=== PATIENT | female | born 1930 | race Caucasian/White ===

== ENCOUNTER 2019-04-27 12:03 | Emergency (ER) | payer MEDICARE, BC ==
[~2019-04-27] VITALS: Ht 162.6 cm; Wt 95.5 kg
[~2019-04-27 12:03] MED LIST: ALB0.5UD NEB; CALC-729 PO; COU5T PO; CYAN100019 PO; FERR-86 PO; HYDR-3972 PO; LOP25T PO; MULT-1179 PO; SPIIN IH
[2019-04-27] MEDS ORDERED: diltiazem 5mg/ml 5ml inj. IV ONE (12:40)
[2019-04-27 12:43] LABS: BASOPHILS # (AUTO) 0.1 X10'3 (0-0.2); BASOPHILS % (AUTO) 0.8 % (0-1); EOSINOPHILS # (AUTO) 0.2 X10'3 (0-0.9); EOSINOPHILS % (AUTO) 2.3 % (0-6); HEMATOCRIT 37.1 % (35.0-45.0); HEMOGLOBIN 12.5 g/dl (12.0-16.0); LYMPHOCYTES # (AUTO) 0.8 X10'3 (1.1-4.8); LYMPHOCYTES % (AUTO) 9.3 % (21-51); MEAN CORPUSCULAR HEMOGLOBIN 34.4 PG (27.0-31.0); MEAN CORPUSCULAR HGB CONC 33.8 g/dL (33.0-36.5); MEAN CORPUSCULAR VOLUME 101.8 FL (78-98); MEAN PLATELET VOLUME 7.5 FL (7.4-10.4); MONOCYTES # (AUTO) 0.7 X10'3 (0-0.9); MONOCYTES % (AUTO) 7.8 % (2-12); NEUTROPHILS % (AUTO) 79.8 % (42-75); PLATELET COUNT 406 X10'3 (140-440); RED BLOOD COUNT 3.65 X10'6 (4.20-5.60); RED CELL DISTRIBUTION WIDTH 13.8 % (11.5-14.5); WHITE BLOOD COUNT 8.8 X10'3 (4.5-11.0)
[2019-04-27] MEDS ORDERED: metoprolol tartrate 50mg tablet PO ONE (12:45)
[2019-04-27 12:55] LABS: ALANINE AMINOTRANSFERASE 26 U/L (12-78); ALBUMIN 2.8 G/DL (3.4-5.0); ALBUMIN/GLOBULIN RATIO 0.5 (1.1-1.5); ALKALINE PHOSPHATASE 94 IU/L (46-116); ANION GAP 7 (8-16); ASPARTATE AMINO TRANSFERASE 34 U/L (10-37); BILIRUBIN,TOTAL 0.6 MG/DL (0.1-1.0); BLOOD UREA NITROGEN 11 MG/DL (7-18); BUN/CREATININE RATIO 10.9 (6.6-38.0); CALCIUM 9.8 MG/DL (8.5-10.1); CHLORIDE 101 MMOL/L (99-107); CREATININE 1.01 MG/DL (0.40-0.90); GLUCOSE 123 MG/DL (70-104); POTASSIUM 3.8 MMOL/L (3.5-5.1); SODIUM 138 MMOL/L (135-145); TOTAL CARBON DIOXIDE 29.6 MMOL/L (24-32); TOTAL PROTEIN 7.9 G/DL (6.4-8.2); eGFR 52 ML/MIN
[2019-04-27 14:18] VITALS: BP 109/78
== END 2019-04-27 14:20 | disposition home or self-care (01) ==
LOC: ER 12:03
DX: I48.20 Chronic atrial fibrillation, unspecified (principal); I25.10 Atherosclerotic heart disease of native coronary artery without angina pectoris; E78.00 Pure hypercholesterolemia, unspecified; I10 Essential (primary) hypertension; J44.9 Chronic obstructive pulmonary disease, unspecified; M19.90 Unspecified osteoarthritis, unspecified site; Z90.49 Acquired absence of other specified parts of digestive tract; Z98.890 Other specified postprocedural states; Z79.01 Long term (current) use of anticoagulants; Z79.899 Other long term (current) drug therapy
CPT/HCPCS: 36415; 71045; 80053; 84484; 85025; 85610; 93005; 96374; 99284; J3490

== ENCOUNTER 2019-11-10 07:58 | Day surgery (SDC) | payer MEDICARE, BC ==
[2019-11-09 13:28] LABS: BASOPHILS # (AUTO) 0.1 X10'3 (0-0.2); EOSINOPHILS # (AUTO) 0.2 X10'3 (0-0.9); EOSINOPHILS % (AUTO) 2.2 % (0-6); HEMATOCRIT 40.7 % (35.0-45.0); HEMOGLOBIN 13.5 g/dl (12.0-16.0); LYMPHOCYTES # (AUTO) 1.4 X10'3 (1.1-4.8); MEAN CORPUSCULAR HEMOGLOBIN 34.1 PG (27.0-31.0); MEAN CORPUSCULAR HGB CONC 33.1 g/dL (33.0-36.5); MEAN PLATELET VOLUME 8.3 FL (7.4-10.4); MONOCYTES # (AUTO) 0.7 X10'3 (0-0.9); NEUTROPHILS # (AUTO) 5.3 X10'3 (1.8-7.7); NEUTROPHILS % (AUTO) 69.8 % (42-75); PLATELET COUNT 240 X10'3 (140-440); RED BLOOD COUNT 3.95 X10'6 (4.20-5.60); RED CELL DISTRIBUTION WIDTH 14.8 % (11.5-14.5); WHITE BLOOD COUNT 7.6 X10'3 (4.5-11.0)
[2019-11-09 13:37] LABS: PARTIAL THROMBOPLASTIN TIME 27 SECONDS (22-32)
[2019-11-09 13:44] LABS: ALBUMIN 3.5 G/DL (3.4-5.0); ANION GAP 12 (8-16); BLOOD UREA NITROGEN 11 MG/DL (7-18); BUN/CREATININE RATIO 9.6 (6.6-38.0); CALCIUM 9.4 MG/DL (8.5-10.1); CHLORIDE 107 MMOL/L (99-107); CREATININE 1.15 MG/DL (0.40-0.90); GLUCOSE 121 MG/DL (70-104); POTASSIUM 4.3 MMOL/L (3.5-5.1); SODIUM 145 MMOL/L (135-145); TOTAL CARBON DIOXIDE 26.2 MMOL/L (24-32); eGFR 45 ML/MIN
[2019-11-10] VITALS (13 sets, daily range): BP systolic 112–125; BP diastolic 54–82
[~2019-11-10] VITALS: Ht 152.4 cm; Wt 90.6 kg
[~2019-11-10 07:58] MED LIST changes: -COU5T PO; +WARF-113 PO
[2019-11-10] MEDS ORDERED: LIDOcaine/PRILOcaine 5gm cream TP ONE (08:15)
[2019-11-10] MEDS ORDERED: diphenhydrAMINE 25mg capsule PO PRN (08:20)
[2019-11-10] MEDS ORDERED: LORazepam 0.5 MG tablet PO PRN (08:20)
[2019-11-10] MEDS ORDERED: normal saline 1,000 ML IV SCH (08:20)
[2019-11-10] MEDS ORDERED: METO25TA6 PO (11:39)
[2019-11-10] MEDS ORDERED: NITR0.4T51 SL (11:56)
[2019-11-10] MEDS ORDERED: CYCL5TAB PO (11:56)
[2019-11-10] MEDS ORDERED: APIX2.5T PO (11:56)
[2019-11-10] MEDS ORDERED: ACET-1008 PO (11:56)
[2019-11-10] MEDS ORDERED: FOLIC ACID 1 MG PO (11:56)
[2019-11-10] MEDS ORDERED: DIGO125T97 PO (11:56)
[2019-11-10] MEDS ORDERED: CHOL500049 PO (11:56)
[2019-11-10] MEDS ORDERED: FLUT1BLS4 PO (11:56)
[2019-11-10] MEDS ORDERED: ALBU18HF2 INH (11:56)
[2019-11-10] MEDS ORDERED: nitroGLYCERIN-Tridil 50MG/D5W 250 ML IV ONE (12:11)
[2019-11-10] MEDS ORDERED: verapamil 2.5 mg/ml inj IV ONE (12:11)
[2019-11-10] MEDS ORDERED: fentaNYL/PF 50MCG/1 ML 2ML syringe ONE (12:11)
[2019-11-10] MEDS ORDERED: midazolam 2 mg/2 ml injection ONE (12:11)
[2019-11-10] MEDS ORDERED: iohexol 350 MG/ML 50ML vial IV ONE ×2 (12:12→13:15)
[2019-11-10] MEDS ORDERED: heparin 1,000unit/ml 10ml vial 10 ML ONE (12:12)
[2019-11-10] MEDS ORDERED: LIDOcaine 1% (10mg/ml)w/preservative injection 20ml MDV ONE (12:12)
[2019-11-10] MEDS ORDERED: iohexol 350MG/ML 100ml bottle IV ONE (12:12)
[2019-11-10 14:01] LABS: ISTAT HGB ART 13.3 g/dl (12.0-16.0); ISTAT Hct ART 39 %PCV (35-48); ISTAT O2 SATURATION ARTERIAL 96 % (95-98); ISTAT SOURCE ART
== END 2019-11-10 20:36 | disposition home or self-care (01) ==
LOC: SSTAY O 07:58
PROVIDERS: ATTEND Internal Medicine Cardiovascular Disease
DX: R06.02 Shortness of breath (principal); I25.10 Atherosclerotic heart disease of native coronary artery without angina pectoris; J44.9 Chronic obstructive pulmonary disease, unspecified; I35.0 Nonrheumatic aortic (valve) stenosis; M19.90 Unspecified osteoarthritis, unspecified site; I48.20 Chronic atrial fibrillation, unspecified; F03.90 Unspecified dementia, unspecified severity, without behavioral disturbance, psychotic disturbance, mood disturbance, and anxiety; G47.30 Sleep apnea, unspecified; I10 Essential (primary) hypertension; E78.5 Hyperlipidemia, unspecified; Z96.653 Presence of artificial knee joint, bilateral; Z90.49 Acquired absence of other specified parts of digestive tract; Z98.890 Other specified postprocedural states; Z87.891 Personal history of nicotine dependence; Z80.1 Family history of malignant neoplasm of trachea, bronchus and lung
CPT/HCPCS: 36415; 80048; 82803; 85014; 85025; 85610; 85730; 93005; 93460; 93567; 99152; 99153; C1769; C1894; J1644; J2001; J2250; J3010; J7030; Q0163; Q9967; A5120; J3490

== ENCOUNTER 2020-11-30 18:11 | Emergency (ER) | payer MEDICARE, BC ==
[~2020-11-30] VITALS: Ht 157.5 cm; Wt 76.8 kg
[~2020-11-30 18:11] MED LIST changes: +ACID1CAP3 PO; -ALB0.5UD NEB; -CALC-729 PO; +CEFT2VIA13 IV; -CYAN100019 PO; -FERR-86 PO; +FLUT1BLS4 IH; -HYDR-3972 PO; +IPRA3AMP31 IH; -MULT-1179 PO; +NITR0.4T48 PO; +SENN-263 PO; -SPIIN IH; -WARF-113 PO; +WARF-55 PO
[2020-11-30 18:26] VITALS: BP 121/42
[2020-11-30 19:52] LABS: BASOPHILS # (AUTO) 0.1 X10'3 (0-0.2); BASOPHILS % (AUTO) 0.8 % (0-1); EOSINOPHILS # (AUTO) 0.1 X10'3 (0-0.9); HEMATOCRIT 27.8 % (35.0-45.0); HEMOGLOBIN 9.4 g/dl (12.0-16.0); LYMPHOCYTES # (AUTO) 1.2 X10'3 (1.1-4.8); LYMPHOCYTES % (AUTO) 10.2 % (21-51); MEAN CORPUSCULAR HEMOGLOBIN 31.9 PG (27.0-31.0); MEAN CORPUSCULAR HGB CONC 33.7 g/dL (33.0-36.5); MEAN CORPUSCULAR VOLUME 94.7 FL (78-98); MEAN PLATELET VOLUME 7.6 FL (7.4-10.4); MONOCYTES # (AUTO) 0.8 X10'3 (0-0.9); MONOCYTES % (AUTO) 7.2 % (2-12); NEUTROPHILS # (AUTO) 9.1 X10'3 (1.8-7.7); NEUTROPHILS % (AUTO) 80.8 % (42-75); PLATELET COUNT 308 X10'3 (140-440); RED BLOOD COUNT 2.94 X10'6 (4.20-5.60); WHITE BLOOD COUNT 11.3 X10'3 (4.5-11.0)
[2020-11-30 20:03] LABS: ALBUMIN 2.5 G/DL (3.4-5.0); ALBUMIN/GLOBULIN RATIO 0.5 (1.1-1.5); ALKALINE PHOSPHATASE 99 IU/L (46-116); ANION GAP 10 (8-16); ASPARTATE AMINO TRANSFERASE 23 U/L (10-37); BILIRUBIN,TOTAL 0.6 MG/DL (0.1-1.0); BLOOD UREA NITROGEN 16 MG/DL (7-18); BUN/CREATININE RATIO 17.2 (6.6-38.0); CALCIUM 9.3 MG/DL (8.5-10.1); CHLORIDE 103 MMOL/L (99-107); CREATININE 0.93 MG/DL (0.40-0.90); GLUCOSE 97 MG/DL (70-104); POTASSIUM 3.5 MMOL/L (3.5-5.1); SODIUM 138 MMOL/L (135-145); TOTAL CARBON DIOXIDE 24.8 MMOL/L (24-32); TOTAL PROTEIN 7.7 G/DL (6.4-8.2); eGFR 57 ML/MIN
[2020-11-30 20:18] LABS: ALANINE AMINOTRANSFERASE 8 U/L (12-78)
[2020-11-30 21:57] LABS: PARTIAL THROMBOPLASTIN TIME 54 SECONDS (22-32)
[2020-11-30] MEDS ORDERED: HYDR-3965 PO (21:57)
[2020-11-30] MEDS ORDERED: ondansetron 4mg rapidly disintigrating tab PO ONE (22:05)
[2020-11-30] MEDS ORDERED: HYDROcodone/acetaminophen 5mg/325mg tablet PO ONE (22:05)
== END 2020-11-30 22:32 | disposition home or self-care (01) ==
LOC: ER 18:12
DX: S90.121A Contusion of right lesser toe(s) without damage to nail, initial encounter (principal); M79.674 Pain in right toe(s); M25.561 Pain in right knee; I48.91 Unspecified atrial fibrillation; I25.10 Atherosclerotic heart disease of native coronary artery without angina pectoris; E78.00 Pure hypercholesterolemia, unspecified; I10 Essential (primary) hypertension; J44.9 Chronic obstructive pulmonary disease, unspecified; M19.90 Unspecified osteoarthritis, unspecified site; Z90.49 Acquired absence of other specified parts of digestive tract; Z98.890 Other specified postprocedural states; Z79.2 Long term (current) use of antibiotics; Z79.899 Other long term (current) drug therapy; X58.XXXA Exposure to other specified factors, initial encounter; Y93.89 Activity, other specified; Y92.89 Other specified places as the place of occurrence of the external cause; Y99.8 Other external cause status
CPT/HCPCS: 36415; 73630; 80053; 83605; 84145; 85025; 85610; 85651; 85730; 86140; 87040; 99284